=== PATIENT | female | born 1995 | race Caucasian/White ===

== ENCOUNTER 2017-06-02 19:51 | Emergency (ER) | payer MEDICAID ==
[~2017-06-02] VITALS: Ht 165.1 cm; Wt 121.5 kg
[2017-06-02 20:26] VITALS: Ht 165.1 cm; Wt 121.5 kg
[2017-06-03] MEDS ORDERED: IBUP800T25 PO (03:19)
[2017-06-03] MEDS ORDERED: HYDR-906 PO (03:19)
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
[2017-06-03 03:30] VITALS: BP 128/93; PULSE 72; RESP 17; TEMP 97.8
--- NOTE | 2017-06-03 08:39 | RADRPT ---
PROCEDURE: CHEST - 1 VIEW CLINICAL INDICATION: 22-year-old female with left chest pain. TECHNIQUE: A single frontal PA view of the chest was performed. The images were reviewed on a [facility] workstation. COMPARISON: None. FINDINGS: The cardiomediastinal silhouette has a normal appearance. There is no evidence for an infiltrate. T he pulmonary vascularity is within normal limits. There is no evidence for pneumothorax or pneumomed iastinum. The osseous structures are intact. IMPRESSION: No evidence for active cardiopulmonary disease. .Rodrigo Mcrae MD, MD Date Time Electronically viewed and signed by .Rodrigo Mcrae MD, on 06/03/2017 03:33 .M/
--- NOTE | 2017-06-03 08:39 | RADRPT ---
PROCEDURE: LEFT RIB SERIES - 3 VIEWS CLINICAL INDICATION: 22-year-old female with left-sided chest pain. TECHNIQUE: Multiple oblique views of the left ribs were obtained. The images were reviewed on a [facility] workstation. COMPARISON: A obtained concurrently. FINDINGS: There is no evidence for a left rib fracture. The underlying lung parenchyma is intact without evide nce for pneumothorax. IMPRESSION: No radiographic evidence for an acute left rib fracture. .Rodrigo Mcrae MD, MD Date Time Electronically viewed and signed by .Rodrigo Mcrae MD, MD on 06/03/2017 03:34 .M/
== END 2017-06-03 03:30 | disposition home or self-care (01) ==
LOC: FTE 19:51
DX: S29.9XXA Unspecified injury of thorax, initial encounter (principal); X58.XXXA Exposure to other specified factors, initial encounter; Y92.9 Unspecified place or not applicable
CPT/HCPCS: 71010; 71100; Z7502